=== PATIENT | male | born 1945 | race Caucasian/White ===

== ENCOUNTER 2016-11-06 09:31 | Inpatient (IN) | payer MEDICARE ==
[2016-11-06] VITALS (8 sets, daily range): BP systolic 114–158; BP diastolic 73–97
[~2016-11-06] VITALS: Ht 177.8 cm; Wt 140.6 kg
--- NOTE | ~2016-11-06 | PR ---
[place], [place] PROGRESS NOTE NAME: [id number] UN[facility] #: [id number] ROOM: 506 DOCTOR: SYLVESTER TROY MD BIRTHDATE: [birth year] DOS: 11/07/2016 SUBJECTIVE: The patient was seen in our cardiology division just prior to his stress test. He is a 71-year-old man with a history of coronary artery disease who has had chest tightness in the past. Usually, he is able to walk through it and the tightness resolves. He presented to the hospital on this occasion because of persistent tightness that was not relieved by anything he did. He does have a history of atrial fibrillation and came to the hospital for further assessment. In the hospital, his troponin levels were normal and he had no acute EKG changes. A pharmacologic stress test was scheduled. PHYSICAL EXAMINATION: VITAL SIGNS: Today, his pulse is 77 and irregularly irregular, blood pressure 140/82. NECK: Supple. He has no jugular distention. Carotids are full. He has no bruits. He has no neck or supraclavicular masses. LUNGS: Respirations are unlabored. His chest is clear to auscultation and percussion. HEART: Has an irregularly irregular rhythm without murmurs or gallops. PMI is not displaced. ABDOMEN: Obese, but otherwise benign. EXTREMITIES: Showed no edema. IMPRESSION: 1. History of coronary artery disease. 2. Atypical chest tightness which has since resolved. The patient shows no signs of acute coronary ischemia. He has, however, had stents in the past. PLAN: We will proceed with a pharmacologic stress test. Further recommendations depend upon the results of the stress test. We thank the hospitalist physicians for asking our advice regarding his care. SYLVESTER TROY MD CM:PNTRANS [id number] SYLVESTER TROY MD 11/12/16 1559 interface
[~2016-11-06 09:31] MED LIST: ASPIRIN81 M1 PO; BIAXIN500 MG PO; CARDIZEM CD240 M1 PO; CO Q-1010 MG PO; COQ-1030 MG PO; CRESTOR; CRESTOR10 M1 PO; CRESTOR40 MG PO; DIGITEK250 MCG PO; DULOXETINE HCL60 MG PO; ECOTRIN81 MG PO; FISH OIL; FISH OIL500 M1 PO; FISH OIL500 MG PO; FLAGYL500 MG PO; HYDROCODONE BIT1 T11 PO; LOPRESSOR100 MG PO; MEDROL DOSEPAK4 MG PO; METOPROLOL; PROVENTIL0.09 MG/AC IH; SOTALOL HCL120 MG PO; TOPROL XL100 MG PO; VITAMIN D400 I1 PO; XARE20MG PO; XARELTO10 PO; ZOFRAN4 MG PO
[2016-11-06 09:53] LABS: BASO % 0.4 % (0.0-1.0); EOS # 0.2 10*3/uL (0.0-0.4); EOS % 1.9 % (1.0-4.0); HEMATOCRIT 41.8 % (42.0-52.0); HEMOGLOBIN 13.4 g/dl (14.0-18.0); LYMPH # 1.7 10*3/uL (1.3-4.4); LYMPH % 18.2 % (27.0-41.0); MEAN CELL VOLUME 88.2 fl (80.0-94.0); MEAN CORPUSCULAR HGB 28.3 pg (27.0-31.0); MEAN CORPUSCULAR HGB CONC 32.1 g/dl (33.0-37.0); MEAN PLATELET VOLUME 9.4 fl (9.6-12.3); MONO # 0.4 10*3/uL (0.1-1.0); MONO % 4.5 % (3.0-9.0); NEUT # 6.9 10*3/uL (2.3-7.9); NEUT % 74.6 % (47.0-73.0); PLATELET COUNT AUTOMATED 207 10*3/uL (130-400); RED BLOOD COUNT 4.74 10*6/uL (4.50-5.90); WHITE BLOOD COUNT 9.3 10*3/uL (4.8-10.8)
[2016-11-06 10:06] LABS: ACT PARTIAL THROMBO TIME 33.6 SECONDS (20.8-31.5); INTERNATIONAL NORM RATIO 1.2 (2.0-3.5)
[2016-11-06 10:15] LABS: ALBUMIN 3.3 gm/dl (3.1-4.5); ALKALINE PHOSPHATASE 38 U/L (45-117); BUN 13 mg/dl (7-24); CHLORIDE 104 mmol/L (98-107); CREATININE 1.17 mg/dL (0.70-1.30); MAGNESIUM 2.1 mg/dL (1.5-2.1); POTASSIUM 3.8 mmol/L (3.5-5.1); SGOT/AST 25 IU/L (3-35); SGPT/ALT 35 U/L (12-78); SODIUM 141 mmol/L (136-145); TOTAL PROTEIN 7.3 gm/dL (6.4-8.2)
[2016-11-06 10:16] LABS: TROPONIN I < 0.015 ng/ml (<0.045)
--- NOTE | 2016-11-06 10:25 | NUR ---
MEDICATED WITH TYLENOL ORDERED FOR C/O HEADACHE. DANNA CAMPBELL RN
--- NOTE | 2016-11-06 12:30 | NUR ---
A 71, admitted to , under the services of ERICKA Sheffield DO with a diagnosis of CHEST PAIN. Chief complaint is SHORTNESS OF BREATH, CHEST TIGHTNESS. Patient arrived via bed from ER. Monitor applied. Initial assessment completed. Vital signs taken and recorded. ERICKA SHEFFIELD DO notified of admission to the unit. Orders received. See assessment for past medical history, medications and allergies. Patient and/or family oriented to unit. [facility] visitation policy reviewed. Clothing/patient valuable form completed. VENITA LOREDO R
--- NOTE | 2016-11-06 12:45 | NUR ---
SPOKE WITH DR. 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
--- NOTE | 2016-11-06 13:34 | NUR ---
CALLED DR. TROY OFFICE REGARDING CONSULT. THEY WILL PAGE HIM.
--- NOTE | 2016-11-06 13:41 | NUR ---
VERIFIED HOME MEDS WITH PT. HE HAS MAIL IN PHARMACY.
[2016-11-07] VITALS: BP 125/85
--- NOTE | 2016-11-07 | NUR ---
SLEEPING, NO DISTRESS NOTED. RESPIRATIONS EASY. LUNGS DIMINISHED, CLEAR. PULSE OX 100% 2L. DENIES CHEST PAIN OR PRESSURE. CALL LIGHT WITHIN REACH. NO VOICED COMPLAINTS
--- NOTE | 2016-11-07 06:00 | NUR ---
SLEPT THROUGHOUT NIGHT WITH NO DISTRESS NOTED. RESPIRATIONS EASY. PATIENT DENIES SOB, O2 REMOVED AND PLACED AT BEDSIDE FOR PRN USE. BATHED THIS AM. NPO STATUS MAINTAINED FOR TESTING. CALL LIGHT WITHIN REACH. NO VOICED COMPLAINTS
[2016-11-07 07:40] LABS: BASO % 0.4 % (0.0-1.0); EOS # 0.2 10*3/uL (0.0-0.4); EOS % 2.3 % (1.0-4.0); HEMOGLOBIN 13.1 g/dl (14.0-18.0); LYMPH # 1.5 10*3/uL (1.3-4.4); LYMPH % 18.9 % (27.0-41.0); MEAN CELL VOLUME 86.4 fl (80.0-94.0); MEAN CORPUSCULAR HGB 28.3 pg (27.0-31.0); MEAN CORPUSCULAR HGB CONC 32.8 g/dl (33.0-37.0); MONO # 0.5 10*3/uL (0.1-1.0); MONO % 5.9 % (3.0-9.0); NEUT # 5.9 10*3/uL (2.3-7.9); NEUT % 72.1 % (47.0-73.0); PLATELET COUNT AUTOMATED 185 10*3/uL (130-400); RED BLOOD COUNT 4.63 10*6/uL (4.50-5.90); RED CELL DISTRI WIDTH 13.9 % (0-14.5); WHITE BLOOD COUNT 8.2 10*3/uL (4.8-10.8)
[2016-11-07 07:48] LABS: ACT PARTIAL THROMBO TIME 35.7 SECONDS (20.8-31.5); INTERNATIONAL NORM RATIO 1.2 (2.0-3.5)
[2016-11-07 08:00] VITALS: BP 106/82
[2016-11-07 08:14] LABS: ALBUMIN 3.4 gm/dl (3.1-4.5); BUN 11 mg/dl (7-24); CHLORIDE 103 mmol/L (98-107); CHOLESTEROL 148 mg/dL (<200); MAGNESIUM 2.2 mg/dL (1.5-2.1); POTASSIUM 3.9 mmol/L (3.5-5.1); SGOT/AST 26 IU/L (3-35); SGPT/ALT 35 U/L (12-78); SODIUM 139 mmol/L (136-145)
[2016-11-07 08:20] LABS: VITAMIN D, 25-HYDROXY 36.3 ng/mL (30-100)
[2016-11-07 08:23] LABS: ALKALINE PHOSPHATASE 34 U/L (45-117); HDL CHOLESTEROL 37 mg/dl (40-60); LDL CHOLESTEROL 88 mg/dL (9-159); PHOSPHOROUS 3.2 mg/dL (2.5-4.9); TRIGLYCERIDES 115 mg/dl (<150); VLDL CHOLESTEROL 23 mg/dL (6-40)
--- NOTE | 2016-11-07 09:12 | NUR ---
Warehouseman in to talk to patient. Patient states lives at Home with . There are 2 (porch) steps in the home. Physician: Lynn Tijerina in [facility] Pharmacy: [facility] Home health services: NO Patient's level of ADLs: INDEPENDENT Patient has working utilities: yes DME: none Follow-up physician's appointment after d/c: self Does patient want to access PORTAL?: no Discharge plan Home, no needs at this time. DONY AJ
--- NOTE | 2016-11-07 11:29 | NUR ---
INFORMED SIGNED CONSENT FOR LEXISCAN STRESS WITH DR TROY RESTING EKG AFIB HR 77 BP 140/82. PULSE OX 97% LUNGS CLEAR. PT COMPLETED ONE MINUTE OF A LEXISCAN PROTOCOL WITH PT RECEIVING LEXISCAN 0.4MG IV OVER 10 SECONDS. PT REACHED A PEAK HR OF 91 BP 128/78. NO ARRHYTMIAS OR ST CHANGES NOTED. PT C/O SOB WITH INFUSION. LAST RECOVERY HR OF 89 BP 124/72. PT IN STABLE CONDITION, AWAITING NUCLEAR IMAGES.
[2016-11-07 16:00] VITALS: BP 127/86
--- NOTE | 2016-11-07 17:08 | NUR ---
PT RESTING IN BED. NO DISTRESS NOTED. WILL MONITOR
[2016-11-07] MEDS ORDERED: METOPROLOL SUC100 M1 PO (17:18)
[2016-11-07] MEDS ORDERED: ATORVASTATIN CA40 M1 PO (17:18)
--- NOTE | 2016-11-07 18:36 | NUR ---
REPORT CALLED TO MARITA
[2016-11-07 20:00] VITALS: BP 148/90
--- NOTE | 2016-11-07 20:15 | NUR ---
PATIENT AMBULATING IN [place]. ANXIOUS. REQUESTING TRANSFER. EXPLAINED THAT AMBULANCE IS TO BE ON THE WAY. [facility] RECONTACTED AT PATIENT REQUEST.
--- NOTE | 2016-11-07 20:40 | NUR ---
[facility] HERE FOR TRANSPORT. PATIENT TRANSPORTED TO [facility] FOR FURTHER TESTING
== END 2016-11-07 20:40 | disposition short-term general hospital (02) | DRG 281 ==
LOC: ED 09:31 → EDHOLD 10:58 → 5E 10:58
PROVIDERS: Internal Medicine; ADMIT Emergency Medicine
PROC: 3E073KZ Introduction of Other Diagnostic Substance into Coronary Artery, Percutaneous Approach (ICD-10-PCS; principal; 2016-11-07)
PROC: 4A02XM4 Measurement of Cardiac Total Activity, External Approach (ICD-10-PCS; principal; 2016-11-07)
DX: I21.3 ST elevation (STEMI) myocardial infarction of unspecified site (principal); Z68.41 Body mass index [BMI] 40.0-44.9, adult; I48.2 Chronic atrial fibrillation; E11.9 Type 2 diabetes mellitus without complications; D64.9 Anemia, unspecified; I10 Essential (primary) hypertension; R09.1 Pleurisy; F41.9 Anxiety disorder, unspecified; E66.9 Obesity, unspecified; K21.9 Gastro-esophageal reflux disease without esophagitis; I25.10 Atherosclerotic heart disease of native coronary artery without angina pectoris; M10.9 Gout, unspecified; E78.5 Hyperlipidemia, unspecified; G47.33 Obstructive sleep apnea (adult) (pediatric); Z96.643 Presence of artificial hip joint, bilateral; Z96.652 Presence of left artificial knee joint; I25.2 Old myocardial infarction; Z95.5 Presence of coronary angioplasty implant and graft; Z87.81 Personal history of (healed) traumatic fracture; Z80.8 Family history of malignant neoplasm of other organs or systems; Z83.3 Family history of diabetes mellitus; Z82.0 Family history of epilepsy and other diseases of the nervous system; Z82.69 Family history of other diseases of the musculoskeletal system and connective tissue

== ENCOUNTER → 2017-01-06 | Outpatient (CLI) | payer MEDICARE ==
[~2017-01-06] MED LIST changes: +ATORVASTATIN CA40 M1 PO; +METOPROLOL SUC100 M1 PO
[2017-01-06 10:41] LABS: BASO # 0.1 10*3/uL (0.0-0.1); BASO % 0.6 % (0.0-1.0); EOS # 0.2 10*3/uL (0.0-0.4); EOS % 2.4 % (1.0-4.0); HEMATOCRIT 41.5 % (42.0-52.0); HEMOGLOBIN 13.6 g/dl (14.0-18.0); LYMPH # 1.7 10*3/uL (1.3-4.4); LYMPH % 21.3 % (27.0-41.0); MEAN CELL VOLUME 85.6 fl (80.0-94.0); MEAN CORPUSCULAR HGB CONC 32.8 g/dl (33.0-37.0); MEAN PLATELET VOLUME 9.3 fl (9.6-12.3); MONO # 0.5 10*3/uL (0.1-1.0); NEUT # 5.5 10*3/uL (2.3-7.9); NEUT % 69.3 % (47.0-73.0); PLATELET COUNT AUTOMATED 197 10*3/uL (130-400); RED BLOOD COUNT 4.85 10*6/uL (4.50-5.90); RED CELL DISTRI WIDTH 13.5 % (0-14.5)
[2017-01-06 10:52] LABS: ACT PARTIAL THROMBO TIME 36.2 SECONDS (20.8-31.5); INTERNATIONAL NORM RATIO 1.3 (2.0-3.5)
[2017-01-06 10:57] LABS: ALBUMIN 3.5 gm/dl (3.1-4.5); ALKALINE PHOSPHATASE 35 U/L (45-117); BUN 17 mg/dl (7-24); CHLORIDE 103 mmol/L (98-107); CHOLESTEROL 135 mg/dL (<200); CREATININE 1.13 mg/dL (0.70-1.30); HDL CHOLESTEROL 38 mg/dl (40-60); LDL CHOLESTEROL 67 mg/dL (9-159); POTASSIUM 4.2 mmol/L (3.5-5.1); SGOT/AST 19 IU/L (3-35); SGPT/ALT 28 U/L (12-78); SODIUM 141 mmol/L (136-145); TOTAL PROTEIN 7.2 gm/dL (6.4-8.2); TRIGLYCERIDES 150 mg/dl (<150); VLDL CHOLESTEROL 30 mg/dL (6-40)
[2017-01-06 10:58] LABS: FREE T4 0.82 ng/dl (0.76-1.46)
== END | disposition home or self-care (01) ==
LOC: LAB 10:24
PROVIDERS: Internal Medicine Interventional Cardiology
DX: E78.00 Pure hypercholesterolemia, unspecified (principal); R06.02 Shortness of breath

== ENCOUNTER → 2017-01-14 | Outpatient (CLI) | payer MEDICARE ==
[~2017-01-14] MED LIST changes: +FISH OIL 1,0001 EAC4 PO; -FISH OIL500 M1 PO; +ISOSORBIDE DINI30 MG PO; +LASIX40 MG PO; +PLAVIX75 M1 PO; +RANEXA500 M1 PO; +TOPROL XL25 MG PO; +VICTOZA 2-0.6 MG/0.1 SQ
--- NOTE | ~2017-01-14 | HM ---
[place], [place] HOLTER MONITOR REPORT NAME: LIANET EUCEDA SR UNIT #: [id number] ROOM: DOCTOR: SYLVESTER TROY MD BIRTHDATE: [birth year] DOS: A 24-HOUR HOLTER MONITOR The study was done on January 14, analyzed and dictated on 01/15/2017. INDICATIONS: Atrial fibrillation, bradycardia. FINDINGS: The patient was monitored for 24 hours utilizing a Holter device. The basic rhythm was atrial fibrillation, average heart rate was 66 beats per minute with a minimum heart rate of 33 and a maximum of 121, all in atrial fibrillation. Occasional wide complex beats were seen. Several of these appeared to be aberrantly conducted supraventricular contractions; however, some were ventricular in origin with short runs of ventricular bigeminy recorded and several apparent ventricular escape beats noted. The longest pause recorded was 2.8 seconds at 3:35 a.m. No diary was submitted. IMPRESSION: 1. Atrial fibrillation with a relatively slow ventricular response. 2. Wide complex beats, several of which represented aberrantly conducted supraventricular beats; however, ventricular bigeminy and ventricular escape beats were also recorded. SYLVESTER TROY MD CM:HOLTER:HOLTER MONITOR REPORT [phone] SYLVESTER TROY MD
== END | disposition home or self-care (01) ==
LOC: CARD 03:09
DX: I48.2 Chronic atrial fibrillation (principal)

== ENCOUNTER 2017-01-17 13:53 | Inpatient (IN) | payer MEDICARE ==
[~2017-01-17] VITALS: Ht 177.8 cm; Wt 138.0 kg
--- NOTE | ~2017-01-17 | CON ---
[place], [place] REPORT OF CONSULTATION NAME: LIANET EUCEDA SR LOCATED [facility]IN [facility] #: [id number] UNIT #: [id number] ROOM: 502 DOCTOR: MARI DARBYALANANADEGE BIRTHDATE: [birth year] DOS: 01/17/2017 REQUESTING PHYSICIAN: Dr. Caruso. REASON FOR CONSULTATION: Left arm pain. ASSESSMENT: 1. Current presentation with sudden onset of left arm pain, with numbness in the distribution of the median nerve. 2. Significant reproducible back and shoulder pain with local pressure. 3. Recent PTCA stent placement reportedly in the LAD. 4. Classic symptoms of heaviness, tightness prior to patient's presentation before his cardiac catheterization. 5. Hypertension. 6. Hyperlipidemia. 7. Diabetes. 8. Obesity with known obstructive sleep apnea. 9. Known history of chronic AFib, on Coumadin. PLAN: 1. Cycle cardiac enzymes. 2. Consider workup for patient's left arm pain and shoulder pain. 3. Given patient's classic complaint of heaviness, tightness with his usual walks, we will add Ranexa 500 mg b.i.d. 4. Early followup with Dr. Ch within 2-4 weeks as an outpatient. 5. Exercise and weight loss. 6. Call for any change in symptoms. HISTORY AND PHYSICAL: The patient is a pleasant 71-year-old gentleman well known to our practice with Dr. Ch. The patient carries a history of coronary artery disease and chronic atrial fibrillation, on Coumadin. Apparently, the patient underwent recent PTCA stent placement in the L[facility] in [facility] in [place]. The patient had been doing relatively well, taking walks routinely after that where it is about a mile to a mile and a half, but he reports heaviness, tightness with his usually walks, but that this usually resolved with pressing through his usual walks. Apparently, the patient has multiple blockages other than where the patient has stents, even though I have no details of that report yet. The patient presented to the hospital with sudden onset of left shoulder and arm numbness, with no complaint of chest pain, heaviness, tightness noted. No nausea, vomiting, or diaphoresis. No relation to activity, very reproducible with local pressure over his left shoulder and back. The pain and numbness is in the distribution of the median nerve. No weakness. No left face numbness, no loss of vision. The patient has been active as noted above with usually walks that is what appears to be causing stable angina class 1. The patient is scheduled to go through rehabilitation this coming Thursday here in the [facility]. No symptomatic palpitation or any associated dizziness, lightheadedness or near syncope. No PND, orthopnea or pedal edema. The patient does have his own CPAP. No fever, no chills, no night sweats, maintained good appetite, no weight loss. [place], [place] REPORT OF CONSULTATION NAME: LIANET EUCEDA SR UNIT #: [id number] ROOM: 502 DOCTOR: GITA GUERRA MD BIRTHDATE: [birth year] PAST MEDICAL HISTORY: As detailed in my assessment. SOCIAL HISTORY: The patient denies ever any tobacco, alcohol, or illicit drug abuse. FAMILY HISTORY: There is no early family history of heart disease in the family in both parents and 2 of his sisters and 1 brother. CURRENT MEDICATIONS: Dilaudid, vitamin D, Xarelto, Toprol, Victoza, Lasix, Cymbalta, Cardizem, digoxin, Plavix, aspirin, Isordil, nitroglycerin sublingual, magnesium, Dulcolax, [place], and Tylenol. ALLERGIES: The patient has no known drug allergies. REVIEW OF SYSTEMS: Currently, the patient denies any headache, diplopia or blurry vision. No fever, no chills, no night sweats. No abdominal pain, no bright red blood per rectum or tarry stools. The patient admits to joint pain and muscular pain. No anxiety, no depression. No polyuria, no polydipsia, no skin rash. Review of all other systems has been negative. PHYSICAL EXAMINATION: GENERAL: The patient is alert and oriented x 3, quite pleasant, sitting up in bed in mild distress due to his left shoulder and arm pain. VITAL SIGNS: Blood pressure 106/68, heart rate 79, respiratory rate of 14, temperature 97.5. HEENT: Extraocular muscles intact. Pupils equal, round, reactive to light. Conjunctivae: No pallor. Throat: No petechiae. NECK: Good carotid upstroke. Unable to appreciate any bruit, no lymphadenopathy, no thyromegaly. HEART: S1, S2 with faint holosystolic murmur in the left upper sternal border. No rub. No retrosternal heave. CHEST AND BACK: No deformities. LUNGS: Clear to auscultation. Good air movement. No wheezing, no rales. ABDOMEN: Obese, soft, nontender. Present bowel sounds. No masses, no bruits. LOWER EXTREMITIES: There is no edema, both under BEENA hose, with faint distal pulses. NEUROLOGIC: Grossly nonfocal. SKIN: No significant rash. Electrocardiogram showing atrial fibrillation with low voltage QRS, nonspecific ST changes throughout the EKG, no acute ST-T changes. LABORATORY DATA: White count 8.1, hemoglobin 13.8, potassium 4.1. GFR more than 60%. Magnesium 2.2. [place], [place] REPORT OF CONSULTATION NAME: LIANET EUCEDA SR UNIT #: [id number] ROOM: [facility] DOCTOR: GITA GUERRA MD BIRTHDATE: [birth year] GITA GUERRA MD CM:CONSTR:REPORT OF CONSULTATION 1109 01/20/17 0428 interface
[~2017-01-17 13:53] MED LIST changes: -ISOSORBIDE DINI30 MG PO; -LASIX40 MG PO; -PLAVIX75 M1 PO; -RANEXA500 M1 PO; -TOPROL XL25 MG PO; -VICTOZA 2-0.6 MG/0.1 SQ
[2017-01-17 13:56] VITALS: BP 124/71
[2017-01-17 14:12] LABS: BASO # 0.1 10*3/uL (0.0-0.1); BASO % 0.6 % (0.0-1.0); EOS # 0.2 10*3/uL (0.0-0.4); EOS % 1.8 % (1.0-4.0); HEMATOCRIT 41.2 % (42.0-52.0); HEMOGLOBIN 13.4 g/dl (14.0-18.0); LYMPH # 1.8 10*3/uL (1.3-4.4); LYMPH % 19.4 % (27.0-41.0); MEAN CELL VOLUME 86.2 fl (80.0-94.0); MEAN CORPUSCULAR HGB CONC 32.5 g/dl (33.0-37.0); MEAN PLATELET VOLUME 9.4 fl (9.6-12.3); MONO # 0.6 10*3/uL (0.1-1.0); MONO % 6.4 % (3.0-9.0); NEUT # 6.4 10*3/uL (2.3-7.9); NEUT % 71.4 % (47.0-73.0); PLATELET COUNT AUTOMATED 201 10*3/uL (130-400); RED BLOOD COUNT 4.78 10*6/uL (4.50-5.90); RED CELL DISTRI WIDTH 13.7 % (0-14.5)
[2017-01-17 14:21] LABS: INTERNATIONAL NORM RATIO 1.1 (2.0-3.5)
[2017-01-17 14:24] VITALS: BP 115/68
[2017-01-17 14:30] LABS: ALBUMIN 3.6 gm/dl (3.1-4.5); ALKALINE PHOSPHATASE 37 U/L (45-117); BUN 17 mg/dl (7-24); CHLORIDE 102 mmol/L (98-107); POTASSIUM 4.3 mmol/L (3.5-5.1); SGOT/AST 20 IU/L (3-35); SGPT/ALT 30 U/L (12-78); SODIUM 139 mmol/L (136-145); TOTAL PROTEIN 7.5 gm/dL (6.4-8.2); TROPONIN I 0.016 ng/ml (<0.045)
--- NOTE | 2017-01-17 15:15 | NUR ---
REPORT FROM Ainsley LEON RN. PATIENT IN ROOM IN NO DISTRESS. PENDING ADMISSION.
[2017-01-17 15:18] VITALS: BP 105/70
--- NOTE | 2017-01-17 15:35 | NUR ---
A 71, admitted to , under the services of ALEE Gomez DO with a diagnosis of LEFT ARM PAIN. Chief complaint is LEFT ARM PAIN. Patient arrived via BED WITH RN from ER. Monitor applied. Initial assessment completed. Vital signs taken and recorded. ALEE GOMEZ DO notified of admission to the unit. Orders received. See assessment for past medical history, medications and allergies. Patient and/or family oriented to unit. [facility] Clothing/patient valuable form completed. DEMETRIS CRAIG
[2017-01-17 16:00] VITALS: BP 111/76
[2017-01-17] MEDS ORDERED: TOPROL XL25 MG PO (16:02)
--- NOTE | 2017-01-17 16:02 | NUR ---
MED REC COMPLETED AT BEDSIDE WITH PT AND MED LIST. 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
[2017-01-17] MEDS ORDERED: PLAVIX75 M1 PO (16:06)
[2017-01-17] MEDS ORDERED: LASIX40 MG PO (16:06)
[2017-01-17] MEDS ORDERED: ISOSORBIDE DINI30 MG PO (16:08)
[2017-01-17] MEDS ORDERED: VICTOZA 2-0.6 MG/0.1 SQ (16:09)
[2017-01-17 20:00] VITALS: BP 124/83
--- NOTE | 2017-01-17 20:00 | NUR ---
HS ASSESSMENT COMPLETE, NO NEW S/S OF DISTRESS NOTED AT THIS TIME. PT PLEASANT AND COOPERATIVE. NO COMPLAINTS VOICED. ALL NEEDS MET AT THIS TIME. CALL LIGHT IN REACH.
--- NOTE | 2017-01-17 23:16 | NUR ---
24 HR chart check completed.
--- NOTE | 2017-01-17 23:54 | NUR ---
PT C/O ARM PAIN. NORCO 5/325 MG TAB ADMINISTERED PO AT THIS TIME. WILL MONITOR FOR EFFECTIVENESS. PT RESTING IN BED, ALL SAFETY MEASURES IN PLACE. DENIES ANY OTHER SYMPTOMS OF DISTRESS AT THIS TIME, CALL LIGHT IN REACH.
[2017-01-18] VITALS: BP 102/62
--- NOTE | 2017-01-18 00:48 | NUR ---
[employer]. CALLED AND NOTIFIED DR. CHONG OF PT CONTINUING TO HAVE LEFT ARM PAIN. NEW ORDERS RECEIVED.
--- NOTE | 2017-01-18 01:08 | NUR ---
PT GIVEN IV DILAUDID PER ORDER FOR LEFT ARM PAIN. WILL MONITOR FOR EFFECTIVENESS. PT RESTING IN BED, NO OTHER S/S OF DISTRESS. CALL LIGHT IN REACH.
--- NOTE | 2017-01-18 02:08 | NUR ---
DILAUDID EFFECTIVE. PT RESTING IN BED. RESPIRATIONS EASY AND UNLABORED. NO S/S OF DISTRESS. CALL LIGHT IN REACH.
[2017-01-18 04:00] VITALS: BP 108/68
--- NOTE | 2017-01-18 04:18 | NUR ---
PT RESTING IN BED AT THIS TIME, RESPIRATIONS EASY AND UNLABORED. NO S/S OF DISTRESS OR DISCOMFORT. NOT AWAKENED PER [facility] POLICY. HR 60 ON CM. CALL LIGHT IN REACH.
[2017-01-18 05:59] LABS: BASO % 0.5 % (0.0-1.0); EOS # 0.2 10*3/uL (0.0-0.4); EOS % 2.5 % (1.0-4.0); HEMATOCRIT 41.9 % (42.0-52.0); HEMOGLOBIN 13.8 g/dl (14.0-18.0); LYMPH # 1.8 10*3/uL (1.3-4.4); LYMPH % 22.7 % (27.0-41.0); MEAN CELL VOLUME 86.9 fl (80.0-94.0); MEAN CORPUSCULAR HGB 28.6 pg (27.0-31.0); MEAN CORPUSCULAR HGB CONC 32.9 g/dl (33.0-37.0); MEAN PLATELET VOLUME 9.5 fl (9.6-12.3); MONO # 0.7 10*3/uL (0.1-1.0); NEUT # 5.3 10*3/uL (2.3-7.9); NEUT % 65.9 % (47.0-73.0); PLATELET COUNT AUTOMATED 178 10*3/uL (130-400); RED BLOOD COUNT 4.82 10*6/uL (4.50-5.90); RED CELL DISTRI WIDTH 13.8 % (0-14.5); WHITE BLOOD COUNT 8.1 10*3/uL (4.8-10.8)
[2017-01-18 06:32] LABS: ALBUMIN 3.2 gm/dl (3.1-4.5); ALKALINE PHOSPHATASE 31 U/L (45-117); BUN 16 mg/dl (7-24); CHLORIDE 104 mmol/L (98-107); CREATININE 1.04 mg/dL (0.70-1.30); PHOSPHOROUS 3.4 mg/dL (2.5-4.9); POTASSIUM 4.1 mmol/L (3.5-5.1); SGOT/AST 21 IU/L (3-35); SGPT/ALT 28 U/L (12-78); SODIUM 139 mmol/L (136-145); TOTAL PROTEIN 7.1 gm/dL (6.4-8.2)
[2017-01-18 06:42] LABS: DIGOXIN 0.96 ng/ml (0.8-2.0)
--- NOTE | 2017-01-18 10:38 | NUR ---
PT STATES PAIN CONTINUES AT 8/10 IN LEFT ARM. DILAUDID GIVEN. SEE MAR. WILL MONITOR FOR EFFECTIVENESS
--- NOTE | 2017-01-18 11:00 | NUR ---
PT STATES DILAUDID EFFECTIVE FOR PAIN
--- NOTE | 2017-01-18 11:51 | NUR ---
EDUCATION ON RANEXA PRIOR TO FIRST DOSE. PT WITHOUT QUESTIONS AT THIS TIME
[2017-01-18 12:00] VITALS: BP 148/84
[2017-01-18] MEDS ORDERED: RANEXA500 M1 PO (12:45)
--- NOTE | 2017-01-18 13:39 | NUR ---
Discharge instructions reviewed with patient/family. Patient receptive and verbalizes understanding. Follow-up care understood. Written instructions given to patient/family. iv reoved from right ac, dressing applied. tele removed. 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
== END 2017-01-18 13:39 | disposition home or self-care (01) | DRG 303 ==
LOC: ED 13:53 → EDHOLD 15:06 → 5E 15:06
PROVIDERS: Emergency Medicine; ADMIT Internal Medicine
DX: I25.119 Atherosclerotic heart disease of native coronary artery with unspecified angina pectoris (principal); I48.2 Chronic atrial fibrillation; E11.65 Type 2 diabetes mellitus with hyperglycemia; Z68.41 Body mass index [BMI] 40.0-44.9, adult; E66.01 Morbid (severe) obesity due to excess calories; Z96.643 Presence of artificial hip joint, bilateral; Z96.652 Presence of left artificial knee joint; M10.9 Gout, unspecified; E78.5 Hyperlipidemia, unspecified; I10 Essential (primary) hypertension; G47.33 Obstructive sleep apnea (adult) (pediatric); D72.810 Lymphocytopenia; D64.9 Anemia, unspecified; Z79.82 Long term (current) use of aspirin; Z83.3 Family history of diabetes mellitus; I25.2 Old myocardial infarction; Z98.61 Coronary angioplasty status; Z80.9 Family history of malignant neoplasm, unspecified; Z79.899 Other long term (current) drug therapy; M79.602 Pain in left arm; Z79.4 Long term (current) use of insulin

== ENCOUNTER 2017-02-12 10:24 | Emergency (ER) | payer MEDICARE ==
[~2017-02-12] VITALS: Ht 177.8 cm; Wt 138.3 kg
[~2017-02-12 10:24] MED LIST changes: +ISOSORBIDE DINI30 MG PO; +LASIX40 MG PO; +PLAVIX75 M1 PO; +RANEXA500 M1 PO; +TOPROL XL25 MG PO; +VICTOZA 2-0.6 MG/0.1 SQ
[2017-02-12 10:44] LABS: BASO % 0.3 % (0.0-1.0); EOS # 0.1 10*3/uL (0.0-0.4); HEMATOCRIT 42.4 % (42.0-52.0); HEMOGLOBIN 13.6 g/dl (14.0-18.0); LYMPH # 1.1 10*3/uL (1.3-4.4); LYMPH % 9.2 % (27.0-41.0); MEAN CELL VOLUME 86.5 fl (80.0-94.0); MEAN CORPUSCULAR HGB 27.8 pg (27.0-31.0); MEAN CORPUSCULAR HGB CONC 32.1 g/dl (33.0-37.0); MEAN PLATELET VOLUME 9.4 fl (9.6-12.3); MONO # 0.8 10*3/uL (0.1-1.0); MONO % 6.8 % (3.0-9.0); NEUT # 9.5 10*3/uL (2.3-7.9); NEUT % 82.4 % (47.0-73.0); PLATELET COUNT AUTOMATED 189 10*3/uL (130-400); RED CELL DISTRI WIDTH 14.4 % (0-14.5); WHITE BLOOD COUNT 11.6 10*3/uL (4.8-10.8)
[2017-02-12 10:53] LABS: ACT PARTIAL THROMBO TIME 22.8 SECONDS (20.8-31.5)
[2017-02-12 11:01] LABS: ALBUMIN 3.1 gm/dl (3.1-4.5); ALKALINE PHOSPHATASE 35 U/L (45-117); BUN 15 mg/dl (7-24); CHLORIDE 101 mmol/L (98-107); POTASSIUM 4.2 mmol/L (3.5-5.1); SGOT/AST 10 IU/L (3-35); SGPT/ALT 27 U/L (12-78); SODIUM 138 mmol/L (136-145); TOTAL PROTEIN 6.9 gm/dL (6.4-8.2)
[2017-02-12 11:03] LABS: TROPONIN I < 0.015 ng/ml (<0.045)
== END 2017-02-12 15:37 | disposition short-term general hospital (02) ==
LOC: ED 10:24
PROVIDERS: Internal Medicine
DX: I21.4 Non-ST elevation (NSTEMI) myocardial infarction (principal); I48.91 Unspecified atrial fibrillation; I25.10 Atherosclerotic heart disease of native coronary artery without angina pectoris; E78.5 Hyperlipidemia, unspecified; I10 Essential (primary) hypertension; E66.01 Morbid (severe) obesity due to excess calories; Z96.652 Presence of left artificial knee joint; Z96.643 Presence of artificial hip joint, bilateral; Z79.899 Other long term (current) drug therapy

== ENCOUNTER 2017-05-28 21:16 | Emergency (ER) | payer MEDICARE ==
[~2017-05-28] VITALS: Ht 177.8 cm; Wt 130.2 kg
[2017-05-28 22:07] LABS: BASO # 0.1 10*3/uL (0.0-0.1); BASO % 0.5 % (0.0-1.0); EOS # 0.3 10*3/uL (0.0-0.4); EOS % 2.6 % (1.0-4.0); HEMATOCRIT 39.5 % (42.0-52.0); HEMOGLOBIN 12.5 g/dl (14.0-18.0); LYMPH # 1.4 10*3/uL (1.3-4.4); LYMPH % 13.4 % (27.0-41.0); MEAN CELL VOLUME 84.6 fl (80.0-94.0); MEAN CORPUSCULAR HGB 26.8 pg (27.0-31.0); MEAN CORPUSCULAR HGB CONC 31.6 g/dl (33.0-37.0); MEAN PLATELET VOLUME 9.7 fl (9.6-12.3); MONO # 0.7 10*3/uL (0.1-1.0); MONO % 6.5 % (3.0-9.0); NEUT # 8.1 10*3/uL (2.3-7.9); NEUT % 76.6 % (47.0-73.0); PLATELET COUNT AUTOMATED 234 10*3/uL (130-400); RED BLOOD COUNT 4.67 10*6/uL (4.50-5.90); RED CELL DISTRI WIDTH 14.6 % (0-14.5); WHITE BLOOD COUNT 10.5 10*3/uL (4.8-10.8)
[2017-05-28 22:22] LABS: ALBUMIN 3.7 gm/dl (3.1-4.5); ALKALINE PHOSPHATASE 33 U/L (45-117); BUN 18 mg/dl (7-24); CHLORIDE 105 mmol/L (98-107); CREATININE 1.08 mg/dL (0.70-1.30); LIPASE 122 U/L (73-393); POTASSIUM 3.7 mmol/L (3.5-5.1); SGOT/AST 18 IU/L (3-35); SGPT/ALT 21 U/L (12-78); SODIUM 139 mmol/L (136-145); TOTAL PROTEIN 7.4 gm/dL (6.4-8.2)
[2017-05-28 22:29] LABS: BILIRUBIN NEGATIVE (NEGATIVE); BLOOD TRACE-INTACT (NEGATIVE); CLARITY SL CLOUDY (CLEAR); COLOR YELLOW (YELLOW); GLUCOSE NEGATIVE (NEGATIVE); KETONE TRACE (NEGATIVE); LEUKO ESTERASE NEGATIVE (NEGATIVE); NITRITE NEGATIVE (NEGATIVE); PH 5.5 (5.0-9.0); SPECIFIC GRAVITY >= 1.030 (1.005-1.030); UROBILINOGEN 0.2 E.U./dl (0.2-1.0)
[2017-05-28 22:42] LABS: BACTERIA 1+; EPITHELIAL CELLS 0-2; RBC 0-2 rbc/hpf (0-2)
== END 2017-05-29 00:31 | disposition home or self-care (01) ==
LOC: ED 21:16
PROVIDERS: Nurse Practitioner Family
DX: K45.8 Other specified abdominal hernia without obstruction or gangrene (principal); I10 Essential (primary) hypertension; I25.10 Atherosclerotic heart disease of native coronary artery without angina pectoris; I48.91 Unspecified atrial fibrillation; E78.5 Hyperlipidemia, unspecified; E66.01 Morbid (severe) obesity due to excess calories; Z68.41 Body mass index [BMI] 40.0-44.9, adult